=== PATIENT | female | born 1965 | race Caucasian/White ===

== ENCOUNTER 2017-09-30 10:19 | Emergency (ER) | payer MEDICAID ==
[~2017-09-30] VITALS: Ht 154.9 cm; Wt 65.8 kg
[2017-09-30 10:42] VITALS: BP 126/81
[2017-09-30] MEDS ORDERED: Ketorolac 60mg Inj IM ONE (10:45)
--- NOTE | 2017-09-30 11:49 | Emergency Room Report ---
History of Present Illness General Chief Complaint: Back Injury Source: Patient Present Illness HPI Complains of low back pain. She states that she was pulling on her pants yesterday and suddenly developed a sharp pain in her low back. She states that when she woke up this morning the pain was worse. She states the pain is primarily with movement or twisting. If she lays straight she has no pain. She denies fever or chills. She denies weakness. She denies tingling or numbness. She has no other complaints. Allergies: Coded Allergies: PENICILLINS (Verified Allergy, Unknown, Hives, 09/30/17) Patient History Past Medical History: none, see triage record Social History: Denies: smoking, alcohol use, drug use Last Menstrual Period: Post Reviewed Nursing Documentation: PMH: Agreed; PSxH: Agreed Review of Systems All Other Systems: negative except mentioned in HPI Physical Exam Vital Signs Date Time Temp Pulse Resp B/P (MAP) Pulse Ox O2 Delivery O2 Flow Rate FiO2 09/30/17 10:29 98.3 72 16 126/81 95 Room Air 98.2 Sp02 EP Interpretation: reviewed, normal General Appearance: no apparent distress, alert, GCS 15, non-toxic Head: normocephalic, atraumatic Eyes: bilateral eye normal inspection, bilateral eye PERRL ENT: hearing grossly normal, normal pharynx, no angioedema, normal voice Neck: normal inspection, full range of motion Respiratory: no respiratory distress, no retraction, no accessory muscle use, speaking full sentences Gastrointestinal: normal inspection, non-distended Rectal: deferred Musculoskeletal: back normal, gait/station normal, normal range of motion, non- tender Neurologic: alert, oriented x3, responsive, motor strength/tone normal, sensory intact, speech normal Psychiatric: judgement/insight normal, memory normal, mood/affect normal, no suicidal/homicidal ideation Skin: normal color, no rash, warm/dry, well hydrated Medical Decision Making Diagnostic Impression: Primary Impression: Low back strain ER Course This patient has a clinical presentation consistent with low back muscle strain. There are no red flags on physical exam or history that would make me concerned for underlying fracture. Therefore, I do not feel that I need to obtain imaging studies. The patient has pain with range of motion and has tenderness to palpation along the muscle. There is no evidence of compartment syndrome. There is no neurologic deficit. The patient was instructed on supportive home measures. No emergency medical condition was identified. The patient was given return precautions and followup instructions. Last Vital Signs Date Time Temp Pulse Resp B/P (MAP) Pulse Ox O2 Delivery O2 Flow Rate FiO2 09/30/17 11:10 98.2 09/30/17 10:42 73 16 126/81 96 Room Air Status: improved Disposition: HOME, SELF-CARE Condition: Improved Scripts No Active Prescriptions or Reported Meds Referrals: GUILLAUME SPRING,REFERRING (PCP) Patient Instructions: Back Injury Prevention, Back Pain, Adult YESSICA SQUIRES D.O. Sep 30, 2017 11:49
[2017-09-30] MEDS ORDERED: CYCLOBENZAPRINE10 MG ORAL (11:51)
[2017-09-30] MEDS ORDERED: TYLENOL EXTRA500 MG ORAL (11:51)
[2017-09-30] MEDS ORDERED: IBUPROFEN600 MG ORAL (11:51)
[2017-09-30] MEDS ORDERED: LIDODERM700 M1 TOPIC (11:51)
[2017-09-30 11:56] VITALS: BP 122/68
== END 2017-09-30 11:58 | disposition home or self-care (01) ==
LOC: EMR 11:00
DX: S39.012A Strain of muscle, fascia and tendon of lower back, initial encounter (principal); X50.9XXA Other and unspecified overexertion or strenuous movements or postures, initial encounter; Y92.9 Unspecified place or not applicable; Z88.0 Allergy status to penicillin
CPT/HCPCS: 96372; 99283